=== PATIENT | female | born 1985 ===

== ENCOUNTER 2018-07-12 14:30 | Emergency (ER) | payer SELFPAY ==
[~2018-07-12] VITALS: Ht 167.6 cm; Wt 60.9 kg
[~2018-07-12 14:30] MED LIST: AMBIEN CR12.5 MG/BO PO; BUTISOL SODIUM30 MG PO; CYMBALTA60 MG PO; HYDROCODONE-APA1 TAB PO; IBUPROFEN600 MG PO; REQUIP0.25 MG PO; TENORMIN50 MG PO; XANAX1 MG PO
[2018-07-12 14:47] VITALS: Ht 167.6 cm; Wt 60.9 kg
[2018-07-12 15:23] LABS: ALBUMIN 3.5 g/dL (3.4-5.0); ALKALINE PHOSPHATASE 47 U/L (46-116); ALT (SGPT) 23 U/L (10-68); AMYLASE - SERUM 25 U/L (25-115); BILIRUBIN - TOTAL 0.51 mg/dL (0.2-1.3); CALC OSMOLALITY 277 mosm/kg (275-300); CALCIUM 8.4 mg/dL (8.5-10.1); CARBON DIOXIDE 28.4 mmol/L (21.0-32.0); CHLORIDE - SERUM 103 mmol/L (98-107); CREATININE - SERUM 0.9 mg/dL (0.6-1.3); GLUCOSE 106 mg/dL (74-106); LIPASE 120 U/L (73-393); POTASSIUM - SERUM 4.2 mmol/L (3.5-5.1); PROTEIN - SERUM 7.7 g/dL (6.4-8.2); SODIUM 139 mmol/L (136-145); UREA NITROGEN 12 mg/dL (7-18); eGFR NON AFRICAN AMERICAN 76 mL/min (90-120)
[2018-07-12 15:54] LABS: BASOPHILS 0.2 % (0-2); EOSINOPHILS 5.2 % (0-7); HEMATOCRIT 39.1 % (36.0-48.0); HEMOGLOBIN 12.9 g/dL (12-16); IMMATURE GRANULOCYTES 0.4 % (0-5); LYMPHOCYTES 20.5 % (15-50); MCH 28.9 pg (26.0-34.0); MCV 87.5 fL (80.0-100.0); MEAN PLATELET VOLUME 11.1 fL (7.4-10.4); MONOCYTES 5.6 % (2-11); NEUTROPHILS 68.1 % (40-80); RBC 4.47 10x6/uL (4.00-5.40); WBC 14.2 10x3/uL (4.8-10.8)
[2018-07-12 15:56] LABS: PLATELET COUNT 308 10x3/uL (130-400)
[2018-07-12 16:05] LABS: APPEARANCE CLEAR (CLEAR); BILIRUBIN NEGATIVE (NEGATIVE); COLOR YELLOW (YELLOW); GLUCOSE NEGATIVE (NEGATIVE); KETONE NEGATIVE (NEGATIVE); NITRITE NEGATIVE (NEGATIVE); PROTEIN 1+ mg/dL (NEGATIVE); UROBILINOGEN NORMAL (NORMAL)
[2018-07-12 16:07] LABS: BACTERIA MODERATE /hpf (NONE SEEN); EPITHELIAL CELLS 0-5 /hpf (0-5); RED CELLS - URINE 0-5 /hpf (0-5)
[2018-07-12] MEDS ORDERED: ZOFRAN4 MG PO (16:53)
[2018-07-12] MEDS ORDERED: MACROBID100 MG PO (16:53)
[2018-07-12] MEDS ORDERED: MIRALAX17 GM PO (16:53)
[2018-07-12 17:34] VITALS: BP 138/82
== END 2018-07-12 17:35 | disposition home or self-care (01) ==
LOC: D.ER 14:30
PROVIDERS: Family Medicine
DX: N39.0 Urinary tract infection, site not specified (principal); K59.00 Constipation, unspecified